=== PATIENT | female | born 1965 | race Two or more races ===

== ENCOUNTER 2021-02-01 08:28 | Emergency (ER) | payer MEDICAID, OTHER ==
[~2021-02-01] VITALS: Ht 165.1 cm; Wt 68.9 kg
[2021-02-01] MEDS ORDERED: ACETAMINOPHEN 500 MG TAB PO ONE (09:30)
[2021-02-01] MEDS ORDERED: cefTRIAXone SOD 1,000 MG VL IM ONE (09:30)
[2021-02-01] MEDS ORDERED: ACE650RS PO (09:59)
[2021-02-01] MEDS ORDERED: CEPH500T PO (09:59)
[2021-02-01 10:12] VITALS: BP 128/80
== END 2021-02-01 10:06 | disposition home or self-care (01) ==
LOC: ER 08:28 → EDBD 08:28 → ER 10:06
DX: L02.32 Furuncle of buttock (principal); E11.9 Type 2 diabetes mellitus without complications; I10 Essential (primary) hypertension
CPT/HCPCS: 96372; 99283; J0696